=== PATIENT | female | born 1990 ===

== ENCOUNTER → 2024-03-28 | Outpatient (CLI) | payer OTHER ==
[2024-04-10 07:23] LABS: HPV HIGH RISK BY TMA Not Detected; HPV SOURCE Cervical
== END | disposition home or self-care (01) ==
LOC: LAB SHORT 16:23 → LAB 16:23
PROVIDERS: Family Medicine
DX: Z01.419 Encounter for gynecological examination (general) (routine) without abnormal findings (principal)
CPT/HCPCS: 87624; G0123